=== PATIENT | female | born 1965 | race African-American/Black ===

== ENCOUNTER 2023-09-29 05:49 | Emergency (ER) | payer OTHER ==
[~2023-09-29] VITALS: Ht 165.1 cm; Wt 84.1 kg
[2023-09-29] MEDS ORDERED: LIDOCAINE 1% 10 ML VIAL SQ ONE (06:15)
[2023-09-29 06:40] VITALS: BP 146/92; PULSE 95; RESP 16; TEMP 98.7
[2023-09-29] MEDS ORDERED: KETOROLAC TROMETHAMINE 60 MG/2 ML VIAL IM ONE (06:45)
[2023-09-29] MEDS ORDERED: ACETAMINOPHEN 500 MG TABLET PO ONE (07:00)
[2023-09-29] MEDS ORDERED: TraMADol HCL 50 MG TABLET PO ONE (07:00)
[2023-09-29] MEDS ORDERED: ATEN-187 PO (07:01)
[2023-09-29] MEDS ORDERED: METF-1211 PO (07:01)
[2023-09-29] MEDS ORDERED: LEVO25TA9 PO (07:01)
[2023-09-29] MEDS ORDERED: ATOR10TA69 PO (07:01)
== END 2023-09-29 07:20 | disposition home or self-care (01) ==
LOC: EMS 05:50
DX: S01.01XA Laceration without foreign body of scalp, initial encounter (principal); E11.9 Type 2 diabetes mellitus without complications; E78.00 Pure hypercholesterolemia, unspecified; I10 Essential (primary) hypertension; E03.9 Hypothyroidism, unspecified; Z98.890 Other specified postprocedural states; W19.XXXA Unspecified fall, initial encounter; Y93.89 Activity, other specified; Y92.89 Other specified places as the place of occurrence of the external cause; Y99.8 Other external cause status
CPT/HCPCS: 99283; 12002; J3490; J1885